=== PATIENT | female | born 2000 | race Two or more races ===

== ENCOUNTER → 2021-01-04 | Outpatient (CLI) | payer OTHER | END | disposition home or self-care (01) | LOC: PRENATAL 15:13 | PROVIDERS: ATTEND Obstetrics & Gynecology Maternal & Fetal Medicine | DX: O35.0XX1 Maternal care for (suspected) central nervous system malformation in fetus, fetus 1 (principal); O35.3XX1 Maternal care for (suspected) damage to fetus from viral disease in mother, fetus 1; O98.512 Other viral diseases complicating pregnancy, second trimester; Z3A.24 24 weeks gestation of pregnancy ==

== ENCOUNTER 2021-03-18 00:49 | Outpatient (CLI) | payer OTHER ==
[2021-03-18] MEDS ORDERED: PRENATAL CAPLE1 EAC1 PO (01:38)
== END 2021-03-18 12:41 | disposition home or self-care (01) ==
LOC: OBS/DEL 00:49
PROVIDERS: ATTEND Obstetrics & Gynecology
DX: O60.03 Preterm labor without delivery, third trimester (principal); Z3A.35 35 weeks gestation of pregnancy

== ENCOUNTER 2021-04-12 18:07 | Inpatient (IN) | payer OTHER ==
[~2021-04-12] VITALS: Ht 154.9 cm; Wt 60.8 kg
[~2021-04-12 18:07] MED LIST: PRENATAL CAPLE1 EAC1 PO
== END 2021-04-15 15:02 | disposition home or self-care (01) | DRG 807 ==
LOC: LDR 18:07 → OB/GYN 04-13 16:05
PROVIDERS: ADMIT Obstetrics & Gynecology; ATTEND Obstetrics & Gynecology
PROC: 10E0XZZ Delivery of Products of Conception, External Approach (ICD-10-PCS; principal; 2021-04-12)
PROC: 0W8NXZZ Division of Female Perineum, External Approach (ICD-10-PCS; 2021-04-12)
PROC: 10907ZC Drainage of Amniotic Fluid, Therapeutic from Products of Conception, Via Natural or Artificial Opening (ICD-10-PCS; 2021-04-12)
PROC: 3E0P7VZ Introduction of Hormone into Female Reproductive, Via Natural or Artificial Opening (ICD-10-PCS; 2021-04-12)
PROC: 4A1HXFZ Monitoring of Products of Conception, Cardiac Rhythm, External Approach (ICD-10-PCS; 2021-04-12)
DX: O80 Encounter for full-term uncomplicated delivery (principal); Z37.0 Single live birth; Z20.822 Contact with and (suspected) exposure to COVID-19; Z3A.38 38 weeks gestation of pregnancy

== ENCOUNTER 2024-12-18 14:11 | Outpatient (CLI) | payer OTHER | END 2024-12-18 14:14 | disposition home or self-care (01) | LOC: PRENATAL 14:11 | PROVIDERS: ATTEND Obstetrics & Gynecology Maternal & Fetal Medicine | DX: O36.80X0 Pregnancy with inconclusive fetal viability, not applicable or unspecified (principal); Z36.82 Encounter for antenatal screening for nuchal translucency; Z14.8 Genetic carrier of other disease; Z3A.14 14 weeks gestation of pregnancy ==

== ENCOUNTER 2025-01-27 09:08 | Outpatient (CLI) | payer OTHER | END 2025-01-27 09:09 | disposition home or self-care (01) | LOC: PRENATAL 09:08 | PROVIDERS: ATTEND Obstetrics & Gynecology Maternal & Fetal Medicine | DX: O44.00 Complete placenta previa NOS or without hemorrhage, unspecified trimester (principal); Z3A.19 19 weeks gestation of pregnancy ==

== ENCOUNTER 2025-05-12 22:58 | Outpatient (CLI) | payer OTHER ==
[~2025-05-12] VITALS: Ht 154.9 cm; Wt 56.2 kg
[2025-05-12 23:02] VITALS: BP 94/59
[2025-05-12] MEDS ORDERED: RINGERS SOLUTION,LACTATED 1,000 ML IV SCH (23:15)
[2025-05-13] MEDS ORDERED: DIPHTH,PERTUSS(ACELL),TET VAC 0.5 ML SYRINGE IM ONE (00:30)
[2025-05-13 03:13] VITALS: BP 93/55
[2025-05-13 06:18] VITALS: BP 90/54; O2SAT 98
[2025-05-13 09:37] VITALS: BP 90/54
== END 2025-05-13 12:29 | disposition home or self-care (01) ==
LOC: OBS/DEL 22:58
PROVIDERS: ATTEND Obstetrics & Gynecology
DX: O26.893 Other specified pregnancy related conditions, third trimester (principal); T14.90XA Injury, unspecified, initial encounter; W19.XXXA Unspecified fall, initial encounter; Z3A.34 34 weeks gestation of pregnancy

== ENCOUNTER 2025-06-07 17:08 | Inpatient (IN) | payer OTHER ==
[~2025-06-07] VITALS: Ht 152.4 cm; Wt 58.1 kg
[2025-06-07 16:08] VITALS: BP 109/65
[2025-06-07] MEDS ORDERED: RINGERS SOLUTION,LACTATED 1,000 ML IV SCH (17:15)
[2025-06-07 17:56] LABS: BASO % 0.1 % (0.1-1.2); EOS # 0.04 (0.04-0.54); EOS % 0.5 % (0.7-7.0); LYMPH # 1.58 (1.18-3.74); LYMPH % 19.0 % (19.3-53.1); MEAN PLATELET VOLUME 13.20 fl (9.4-12.4); MONO # 0.55 (0.24-0.82); MONO % 6.6 % (4.7-12.5); NEUT # 6.09 (1.56-6.13); NEUT % 73.4 % (34.0-71.1); RED CELL DISTRIBUTION WIDTH 13.3 % (11.6-14.4)
[2025-06-07 17:57] LABS: URINE APPEARANCE Clear; URINE BILIRRUBIN Negative (NEGATIVE); URINE BLOOD Negative; URINE COLOR Dark Yellow; URINE GLUCOSE Negative (NEGATIVE); URINE LEUKOCYTE Negative; URINE NITRATE Negative; URINE PROTEIN Trace (NEGATIVE); URINE UROBILINOGEN 1.0 E.U./dl
[2025-06-07 18:00] LABS: URINE BACTERIA 60.0 uL (0.0-1933); URINE EPITHELIAL CELLS 24.5 uL (0.0-38.8); URINE RBC 6.4 uL (0.0-20.8); URINE WBC 21.5 uL (0.0-23.2)
[2025-06-07 18:22] LABS: INR < 0.93
[2025-06-07 18:53] LABS: URINE CAST 0.14 uL (0.0-1.40); URINE KETONE 40 (NEGATIVE)
[2025-06-07 20:10] VITALS: BP 95/62
[2025-06-07 23:09] VITALS: BP 98/68
[2025-06-08] VITALS (7 sets, daily range): BP systolic 92–118; BP diastolic 50–74
[2025-06-08] MEDS ORDERED: PRENATABS RX T1 EACH PO (09:24)
[2025-06-09] VITALS (10 sets, daily range): BP systolic 95–126; BP diastolic 56–83; O2SAT 99
[2025-06-09] MEDS ORDERED: MISOPROSTOL 25 MCG/4 ML GEL.W.APPL VAG STA (09:02)
[2025-06-09] MEDS ORDERED: AMPICILLIN SODIUM 2,000 MG VIAL IV ONE (09:45)
[2025-06-09] MEDS ORDERED: AMPICILLIN SODIUM 1,000 MG VIAL IV SCH ×2 (13:00→16:00)
[2025-06-09] MEDS ORDERED: AMPICILLIN SODIUM 1,000 MG VIAL ONE (15:16)
[2025-06-09] MEDS ORDERED: MORPHINE SULFATE 4 MG/ML CARTRIDGE IV ONE (15:45)
[2025-06-09] MEDS ORDERED: OXYTOCIN 500 ML IV ONE (15:45)
[2025-06-09] MEDS ORDERED: CHLORHEXIDINE GLUCONATE 120 ML BOTTLE TOP ONE (17:31)
[2025-06-09] MEDS ORDERED: LIDOCAINE HCL 1% 10ML VIAL ONE (17:31)
[2025-06-09] MEDS ORDERED: ERYTHROMYCIN BASE OPHT 1GM EACH TUBE OP ONE ×2 (17:31→20:00)
[2025-06-09] MEDS ORDERED: OXYTOCIN 20 UNITS/1000ML RL PIGGYBAG IV ONE (17:31)
[2025-06-09] MEDS ORDERED: OXYTOCIN 10 UNITS/ML VIAL ONE (17:32)
[2025-06-09] MEDS ORDERED: OXYTOCIN 1,000 ML IV SCH (19:45)
[2025-06-09] MEDS ORDERED: OXYTOCIN 10 UNITS/ML VIAL IM STA (19:45)
[2025-06-09] MEDS ORDERED: CHLORHEXIDINE GLUCONATE 120 ML BOTTLE TP ONE (19:45)
[2025-06-10 00:42] VITALS: BP 124/86
[2025-06-10 02:06] LABS: BASO % 0.2 % (0.1-1.2); EOS # 0.01 (0.04-0.54); EOS % 0.1 % (0.7-7.0); LYMPH # 0.77 (1.18-3.74); LYMPH % 4.3 % (19.3-53.1); MEAN PLATELET VOLUME 13.30 fl (9.4-12.4); MONO # 1.17 (0.24-0.82); MONO % 6.6 % (4.7-12.5); NEUT # 15.69 (1.56-6.13); NEUT % 88.5 % (34.0-71.1); RED CELL DISTRIBUTION WIDTH 13.4 % (11.6-14.4)
[2025-06-10 08:00] VITALS: BP 122/80
[2025-06-10] MEDS ORDERED: OXYTOCIN 500 ML IV SCH (09:00)
[2025-06-10 16:39] VITALS: BP 118/75
[2025-06-11 00:20] VITALS: BP 109/73
[2025-06-11 08:00] VITALS: BP 119/78
== END 2025-06-11 17:33 | disposition home or self-care (01) | DRG 807 ==
LOC: OBS/DEL 17:08 → OB/GYN 06-08 08:17 → OBS/DEL 06-08 08:17 → LDR 06-08 08:17 → OB/GYN 06-09 19:39
PROVIDERS: Specialist; ADMIT Obstetrics & Gynecology; ATTEND Obstetrics & Gynecology
PROC: BY4FZZZ Ultrasonography of Third Trimester, Single Fetus (ICD-10-PCS; 2025-06-07)
PROC: 3E0P7VZ Introduction of Hormone into Female Reproductive, Via Natural or Artificial Opening (ICD-10-PCS; 2025-06-08)
PROC: 4A1HXCZ Monitoring of Products of Conception, Cardiac Rate, External Approach (ICD-10-PCS; 2025-06-08)
PROC: 10E0XZZ Delivery of Products of Conception, External Approach (ICD-10-PCS; principal; 2025-06-09)
PROC: 0W8NXZZ Division of Female Perineum, External Approach (ICD-10-PCS; 2025-06-09)
PROC: 3E033VJ Introduction of Other Hormone into Peripheral Vein, Percutaneous Approach (ICD-10-PCS; 2025-06-09)
DX: O80 Encounter for full-term uncomplicated delivery (principal); Z37.0 Single live birth; Z3A.39 39 weeks gestation of pregnancy

== ENCOUNTER 2025-07-28 10:00 | Day surgery (SDC) | payer OTHER ==
[~2025-07-28 10:00] MED LIST changes: +PRENATABS RX T1 EACH PO
[2025-07-28] MEDS ORDERED: POVIDONE-IODINE 118 ML BOTT TOP ONE (12:35)
== END 2025-07-28 17:45 | disposition home or self-care (01) ==
LOC: CIR.AMB 10:00
PROVIDERS: ATTEND Obstetrics & Gynecology
DX: N70.11 Chronic salpingitis (principal); Z30.2 Encounter for sterilization; R10.20 Pelvic and perineal pain unspecified side

== ENCOUNTER 2025-07-28 21:04 | Emergency (ER) | payer OTHER ==
[~2025-07-28] VITALS: Ht 154.9 cm; Wt 54.4 kg
[2025-07-28] MEDS ORDERED: 0.9 % SODIUM CHLORIDE 1,000 ML IV SCH (21:45)
[2025-07-28 23:26] LABS: BASO % 0.3 % (0.1-1.2); EOS # 0.05 (0.04-0.54); EOS % 0.5 % (0.7-7.0); LYMPH # 0.96 (1.18-3.74); LYMPH % 10.1 % (19.3-53.1); MEAN PLATELET VOLUME 10.50 fl (9.4-12.4); MONO # 0.83 (0.24-0.82); MONO % 8.7 % (4.7-12.5); NEUT # 7.66 (1.56-6.13); NEUT % 80.3 % (34.0-71.1); RED CELL DISTRIBUTION WIDTH 13.7 % (11.6-14.4)
[2025-07-28 23:53] LABS: INR 1.05
[2025-07-28 23:58] LABS: ALT/SGPT 25.0 U/L (12-78); AST/SGOT 16.0 U/L (15-37); BILIRUBIN TOTAL 0.36 mg/dL (0.3-1.2); BUN CREA RATIO 15.0 (7.0-25.0); CREATININE SERUM 0.73 mg/dL (0.55-1.02); GFR 97.94; GLOBULINA 2.7 G/DL (2.4-3.5); GLUCOSE FASTING 99.0 mg/dL (65-100); OSMOLALITY SERUM 283.0 MOSM/KG (275-295)
== END 2025-07-29 01:08 | disposition home or self-care (01) ==
LOC: ER 21:04
PROVIDERS: Student in an Organized Health Care Education/Training Program
DX: N93.8 Other specified abnormal uterine and vaginal bleeding (principal); R53.1 Weakness